=== PATIENT | female | born 1975 | race Hispanic/Latino ===

== ENCOUNTER 2018-05-25 10:20 | Emergency (ER) | payer OTHER ==
--- NOTE | 2018-05-25 10:42 | Emergency Department Report ---
Minor Respiratory - HPI Chief Complaint: Upper Respiratory Infection Stated Complaint: COUGHING/HEADACHE Time Seen by Provider: 05/25/18 10:41 Duration: 2 Days Pain Location: Chest Severity: mild Minor Respiratory: Yes Sore Throat, Yes Able to Tolerate Fluids, Yes Cough, No Rhinorrhea, No Ear Pain, No Sick Contacts, No Hemoptysis, No Chest Pain, No Shortness of Breath, No Fever Other History: Patient is a 42-year-old female who comes to the ER today with cough consistent with her chronic bronchitis. Patient is a smoker. She also has a migraine headache. Patient is visiting from [facility] and did not bring her Fioricet for her migraines. Patient is afebrile and nontoxic on presentation. ED Review of Systems ROS: Stated complaint: COUGHING/HEADACHE Other details as noted in HPI Comment: All other systems reviewed and negative Constitutional: denies: chills, fever Eyes: denies: eye pain ENT: as per HPI, throat pain. denies: ear pain Respiratory: see HPI, cough Cardiovascular: denies: chest pain, dyspnea on exertion Endocrine: denies: excessive sweating Gastrointestinal: denies: nausea Genitourinary: denies: urgency Musculoskeletal: denies: back pain Skin: denies: lesions Neurological: as per HPI, headache Psychiatric: denies: anxiety Hematological/Lymphatic: denies: easy bleeding ED Past Medical Hx - Past Medical History Previous Medical History?: Yes Hx Headaches / Migraines: Yes Additional medical history: kidney stones - Surgical History Past Surgical History?: Yes Additional Surgical History: couble mastectomy. hyterectomy - Family History Family history: no significant - Social History Smoking Status: Current Every Day Smoker Substance Use Type: None - Medications Home Medications: Home Medications Medication Instructions Recorded Confirmed Last Taken Type Amoxicillin 500 mg PO BID #20 capsule 05/25/18 Unknown Rx Benzonatate [Tessalon Perles] 100 mg PO Q8HR PRN #10 capsule 05/25/18 Unknown Rx Butalb/Acetaminophen/Caffeine 1 cap PO Q8HR PRN #9 cap 05/25/18 Unknown Rx [Fioricet 50-300-40 mg CAP] Fluticasone [Flonase] 1 spray NS QDAY #1 bottle 05/25/18 Unknown Rx methylPREDNISolone [Medrol] 4 mg PO DAILY #1 tab.ds.pk 02/22/19 Unknown Rx Minor Respiratory Exam - Exam General: Vital signs noted. No distress. Alert and acting appropriately. HEENT: Yes Pharyngeal Erythema, Yes Moist Mucous Membranes, No Pharyngeal Exudates, No Rhinorrhea, No Conjuctival Injection, No Frontal Tenderness, No Maxillary Tenderness Ear: Neither TM Bulge, Neither TM Erythema, Neither EAC Pain, Neither EAC Discharge Neck: Yes Supple, No Adenopathy Lungs: Yes Good Air Exchange, Yes Cough, No Wheezes, No Ronchi, No Stridor, No Labored Respirations, No Retractions, No Use of Accessory Muscles, No Other Abnormal Lung Sounds Heart: Yes Regular, No Murmur Abdomen: Yes Normal Bowel Sounds, No Tenderness, No Peritoneal Signs Skin: No Rash, No Edema Neurologic: Alert and oriented, no deficits. Musculoskeletal: Unremarkable. ED Course Vital Signs 05/25/18 10:23 Temperature 98.6 F Pulse Rate 89 Respiratory 18 Rate Blood Pressure 147/90 O2 Sat by Pulse 95 Oximetry ED Medical Decision Making - Medical Decision Making A/C BRONCHITIS SMOKER- EDUCATED ON CESSION A/C MIGRAINE MEDICATED IN ER DUONEB IN ER DC HOME WITH DC PLAN OF CARE VSS AFEBRILE NON TOXIC AMBULATORY Critical care attestation.: If time is entered above; I have spent that time in minutes in the direct care of this critically ill patient, excluding procedure time. ED Disposition Clinical Impression: Bronchitis, Migraine Disposition: DC-01 TO HOME OR SELFCARE Is pt being admited?: No Does the pt Need Aspirin: No Condition: Stable Instructions: Acute Bronchitis (ED) Referrals: CLEMENT PATTERSON [Primary Care Provider] - 3-5 Days Time of Disposition: 10:50
[2018-05-25] MEDS ORDERED: PROVENTIL IH ONE (10:48)
[2018-05-25] MEDS ORDERED: DELTASONE PO ONE (10:48)
[2018-05-25] MEDS ORDERED: TORADOL IM ONE (10:48)
[2018-05-25 11:59] VITALS: BP 130/85
== END 2018-05-25 11:58 | disposition home or self-care (01) ==
LOC: ED 10:20
DX: J40 Bronchitis, not specified as acute or chronic (principal); G43.909 Migraine, unspecified, not intractable, without status migrainosus; F17.200 Nicotine dependence, unspecified, uncomplicated; Z87.442 Personal history of urinary calculi; Z90.710 Acquired absence of both cervix and uterus
CPT/HCPCS: 94640; 96372; 99283; J1885; J7512